=== PATIENT | male | born 1955 | race Caucasian/White ===

== ENCOUNTER 2019-08-15 11:02 | Outpatient (CLI) | payer MEDICARE ==
--- NOTE | 2019-08-15 11:43 | ULT ---
US Hepatic Doppler: 08/15/2019 12:00 AM CLINICAL HISTORY: Cirrhosis. STUDY: Right upper quadrant ultrasound of liver. TECHNIQUE: Multiplanar grayscale and color Doppler images were obtained in a ultrasound of the right upper quadrant of the abdomen. Spectral analysis of the Doppler waveforms of the hepatic and splenic vessels were performed. COMPARISON: None. FINDINGS: Liver: Size: Normal. Echogenicity: Normal. Contour: Nodular consistent with cirrhosis. Mass: None. Bile ducts: No intrahepatic or extrahepatic biliary dilatation. Common bile duct measures 4 mm. Gallbladder: Normal. Pancreas: Head and body appear normal; tail obscured by bowel gas. Hepatic veins: Normal waveforms. Normal directional flow. Portable veins: Normal waveforms. Normal directional flow. Hepatic arteries: Normal waveforms. Normal directional flow. Splenic vein: Normal waveforms. Normal directional flow. Splenic artery: Normal waveforms. Normal directional flow. The spleen is normal in echogenicity without focal lesions and measures 11.5cm in length. IMPRESSION: Cirrhotic liver with normal directional flow of the hepatic and splenic vessels.
== END 2019-08-15 11:03 | disposition home or self-care (01) ==
LOC: SCSULT 11:02
PROVIDERS: ATTEND Internal Medicine Gastroenterology
DX: K70.30 Alcoholic cirrhosis of liver without ascites (principal); K60.2 Anal fissure, unspecified; M53.3 Sacrococcygeal disorders, not elsewhere classified; Z80.0 Family history of malignant neoplasm of digestive organs; Z85.038 Personal history of other malignant neoplasm of large intestine
CPT/HCPCS: 76705

== ENCOUNTER 2019-10-26 10:49 | Outpatient (CLI) | payer MEDICARE ==
--- NOTE | 2019-10-26 11:40 | RAD ---
LUMBAR SPINE SERIES THREE VIEWS: HISTORY: Low back pain. FINDINGS: Vertebral bodies are normal in height. There are prominent osteophytic changes along the course of th e spine, somewhat more right sided. Disk spaces are all relatively well preserved. There are moderate degenerative facet changes noted. 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 POS: TPC
== END 2019-10-26 10:50 | disposition home or self-care (01) ==
LOC: SCSER/OP 10:49
PROVIDERS: ATTEND Family Medicine
DX: M54.5 Low back pain (principal); M47.816 Spondylosis without myelopathy or radiculopathy, lumbar region; M25.78 Osteophyte, vertebrae
CPT/HCPCS: 72100

== ENCOUNTER 2019-11-13 10:54 | Day surgery (SDC) | payer MEDICARE ==
[2019-11-10 09:00] VITALS: BMI 34.8
[2019-11-13 12:33] LABS: Anion Gap 13 mmol/L (10-20); BUN (Urea Nitrogen) 12 mg/dL (8.4-25.7); Calc. Creatinine Clearance 144 mL/min (70-130); Calcium 9.8 mg/dL (7.8-10.44); Carbon Dioxide 28 mmol/L (23-31); Chloride 102 mmol/L (98-107); Estimated GFR-MDRD Greater than 90; Glucose 145 mg/dL (80-115); Potassium 4.6 mmol/L (3.5-5.1); Sodium 138 mmol/L (136-145)
[2019-11-13 12:43] LABS: #Basophils 0.1 thou/uL (0.0-0.2); #Eosinphils 0.2 thou/uL (0.0-0.7); #Lymphocytes 2.1 thou/uL (1.20-3.40); #Monocytes 0.6 thou/uL (0.11-0.59); #Neutrophils 2.2 thou/uL (1.40-6.50); %Basophils 1.5 % (0.0-1.0); %Eosinophils 3.3 % (0.0-10.0); %Lymphocytes 41.1 % (21.0-51.0); %Monocytes 10.8 % (0.0-10.0); %Neutrophils 43.3 % (42.0-75.0); Hemoglobin 14.2 g/dL (14.0-18.0); Mean Corpuscular HGB CONC 34.1 g/dL (32.0-36.0); Mean Corpuscular Hemoglobin 34.4 pg (27.0-31.0); Mean Platelet Volume 11.5 fL (7.4-10.4); Platelet Count 106 thou/uL (130-400); Platelet Morphology Comment Appears Decreased; RBC Distribution Width 11.6 % (11.5-14.5); Red Blood Cell (RBC) Count 4.13 mill/uL (4.70-6.10); White Blood Cell (WBC) Count 5.1 thou/uL (4.8-10.8)
[2019-11-13] MEDS ORDERED: Bupivacaine 0.25% HCL 30 ML VIAL ONE (13:34)
[2019-11-13] MEDS ORDERED: EPINEPHrine 1 MG/ML AMP ONE (13:34)
[2019-11-13] MEDS ORDERED: Fentanyl 100 MCG/2 ML VIAL ONE (13:43)
[2019-11-13] MEDS ORDERED: Lidocaine 2% Jelly 5 ML TUBE ONE (14:21)
--- NOTE | 2019-11-13 16:51 | OP ---
DATE OF PROCEDURE: 11/13/2019 PREOPERATIVE DIAGNOSIS: Anal fissure. POSTOPERATIVE DIAGNOSIS: Anal fissure. PROCEDURE PERFORMED: Lateral internal sphincterotomy after exam under anesthesia. ANESTHESIA: General. ESTIMATED BLOOD LOSS: Minimal. COMPLICATIONS: None. SPECIMENS: None. FINDINGS: There is a hard nodule just posterior to the anal fissure, thought to be scarring from the underlying fissure, where small opening was made anterior to this and it does not tunnel, so no obvious fistula seen. DESCRIPTION OF PROCEDURE: The patient was taken to the operating room and laid supine on the operating room table. After general anesthetic was obtained, he was placed in lithotomy position. His perineum was prepped and draped in a sterile fashion. There was a large posterior anal fissure. There was no anal canal mass. There was no anal margin mass. There was nodular change underneath the posterior anal fissure. There were internal hemorrhoids seen. Incision was made in the mucosa in the anal canal laterally. The internal sphincter muscle was mobilized using a hemostat and cut. Care was taken to avoid injury to the external sphincter. A resultant mucosal defect was closed using Vicryl suture. Local anesthetic was applied. Gelfoam and lidocaine jelly were packed in the anal canal. The patient was sent to Recovery in stable condition. All instrument counts, needle counts, and lap counts were correct. Job ID: [id number]
--- NOTE | 2019-11-16 13:10 | EKG ---
Test Reason : PREOP Blood Pressure : / mmHG Vent. Rate : 081 BPM Atrial Rate : 081 BPM P-R Int : 242 ms QRS Dur : 126 ms QT Int : 414 ms P-R-T Axes : 046 058 063 degrees QTc Int : 480 ms Sinus rhythm with 1st degree A-V block with occasional Premature ventricular complexes Non-specific intra-ventricular conduction block Abnormal ECG Confirmed by ARASH DAWSON ([id number]) on 11/16/2019 1:09:55 PM Referred By: GENA Confirmed By:ARASH DAWSON
== END 2019-11-13 16:34 | disposition home or self-care (01) ==
LOC: SDC 10:54
PROVIDERS: ATTEND Surgery
PROC: 0D8R3ZZ Division of Anal Sphincter, Percutaneous Approach (ICD-10-PCS; principal; 2019-11-13)
DX: K60.2 Anal fissure, unspecified (principal); K64.8 Other hemorrhoids; J30.1 Allergic rhinitis due to pollen; Z86.010 Personal history of colon polyps; Z79.84 Long term (current) use of oral hypoglycemic drugs; Z79.899 Other long term (current) drug therapy
CPT/HCPCS: 36415; 80048; 85025; 93005; 93010; J0171; J0690; J3010; S0020

== ENCOUNTER 2020-08-16 07:09 | Outpatient (CLI) | payer MEDICARE, OTHER ==
[2020-08-17 14:54] LABS: SARS-CoV-2 MS2 Positive; SARS-CoV-2 N Gene Negative; SARS-CoV-2 S Gene Negative; SARS-CoV-2 by NAA Not Detected (NotDetected); SARS-CoV-2 orf1ab Negative
== END 2020-08-16 07:10 | disposition home or self-care (01) ==
LOC: LABBT 07:09
PROVIDERS: ATTEND Ophthalmology Retina Specialist
DX: T85.22XA Displacement of intraocular lens, initial encounter (principal); Z20.828 Contact with and (suspected) exposure to other viral communicable diseases
CPT/HCPCS: 87635; U0003

== ENCOUNTER 2020-09-17 13:23 | Day surgery (SDC) | payer MEDICARE ==
[~2020-09-17 13:23] MED LIST: Bupivacaine PF 0.75% SDV 10 ML ONE; CEFAZOLIN 1 GM VIAL ONE; Dexamethasone 20 MG/5 ML VIAL ONE; Lidocaine 1% PF 5 ML VIAL ONE; Lidocaine 4% PF 5 ML AMP ONE; Maxitrol 0.1% Opth Oint 3.5 GM TUBE ONE; Ondansetron PF 4 MG/2 ML Vial ONE; PROPOFOL 200 MG/20 ML VIAL ONE; Rocuronium Bromide 10 MG/ML (10ML VIAL) ONE; Triamcinolone 40 MG/ML VIAL ONE
[2020-09-17] MEDS ORDERED: Cyclopentolate 1% Opth Drop 2 ML BOT ONE (13:53)
[2020-09-17] MEDS ORDERED: Phenylephrine 2.5% Ophth Soln 5 ML BOT ONE (13:53)
[2020-09-17] MEDS ORDERED: Fentanyl 100 MCG/2 ML VIAL ONE (13:55)
[2020-09-17] MEDS ORDERED: Famotidine/PF 20 mg/2ml Vial ONE (13:55)
[2020-09-17] MEDS ORDERED: Phenylephrine 2.5% Ophth Soln 5 ML BOT FS SCH (14:00)
[2020-09-17] MEDS ORDERED: EPINEPHrine 0.3 MG in Ophthalmic Irrigation Solution 500 ML IRR SCH (14:00)
[2020-09-17] MEDS ORDERED: Cyclopentolate 1% Opth Drop 2 ML BOT FS SCH (14:00)
[2020-09-17] MEDS ORDERED: SUGAMMADEX SODIUM 200 MG/2 ML VIAL ONE (16:42)
--- NOTE | 2020-09-18 00:49 | OP ---
DATE OF PROCEDURE: 09/17/2020 PRINCIPAL PREOPERATIVE DIAGNOSIS: Macula-off rhegmatogenous retinal detachment, left eye. POSTOPERATIVE DIAGNOSIS: Macula-off rhegmatogenous retinal detachment, left eye. NAME OF PROCEDURES PERFORMED: 1. 25-gauge pars plana vitrectomy, left eye. 2. Rhegmatogenous retinal detachment repair, left eye. 3. Endolaser, left eye. 4. 15% C3F8 fill, left eye. ESTIMATED BLOOD LOSS: None. SPECIMENS REMOVED: None. COMPLICATIONS: None. ANESTHESIA: LMA with subtenon's block. SUMMARY OF OPERATION: The patient was identified in the preoperative holding area, where the correct eye being the left eye was marked for surgery. The patient was taken to the operating room, where LMA was induced. The left eye was then prepped and draped in usual sterile ophthalmic fashion for surgery. A wire-clip lid speculum was placed. A standard 25-gauge pars plana vitrectomy platform was fashioned with the trocars placed approximately 3.5 mm from the limbus. The infusion was noted to be within the vitreous cavity prior to being turned on to an infusion pressure of 30 mmHg. The light pipe and microvitrector were introduced in the eye under visualization of the BIOM viewing system. A macula-off rhegmatogenous retinal detachment was noted from approximately 3 o'clock to 10 o'clock. A peripheral shave vitrectomy was performed with the assistance of scleral depression in this previously vitrectomized eye. A small defect was noted at approximately 8 o'clock near the ora char. Great care was taken to relieve all traction off this defect with the use of the microvitrector. A supranasal drainage retinotomy was created with the endo cautery followed by opening with a flute needle. air-fluid exchange was subsequently performed, which allowed for complete flattening of the retina. The endolaser was used to provide barricade around the drainage retinotomy. The inferonasal defect as well as a cerclage within the area of the retinal detachment. Following Endolaser, the flute needle was reintroduced in the eye to remove the residual subretinal fluid. An air-gas exchange was subsequently performed with 15% C3F8. The cannulas were sequentially removed with suturing required of the superotemporal sclerotomy with 8-0 Vicryl suture. Following suturing, all sclerotomies were noted to be gas tight. An inferonasal conjunctival peritomy was fashioned with Federico scissors for administration of sub-Tenon's block. The block consisted of 1:1 ratio of 4% lidocaine and 0.75% Marcaine. A total of 5 cc was administered. Subconjunctival Kenalog and Ancef were injected into the subconjunctival space. Subsequently, the wire lid speculum was removed followed by application of TobraDex ophthalmic ointment and a light patch and shield. The patient tolerated the procedure well, was taken to Outpatient Recovery in good condition. Job ID: [id number]
== END 2020-09-17 19:40 | disposition home or self-care (01) ==
LOC: SDC 13:23
PROVIDERS: ATTEND Ophthalmology Retina Specialist
PROC: 08T53ZZ Resection of Left Vitreous, Percutaneous Approach (ICD-10-PCS; principal; 2020-09-17)
DX: H33.012 Retinal detachment with single break, left eye (principal); Z88.8 Allergy status to other drugs, medicaments and biological substances
CPT/HCPCS: 36416; 67025; J0171; J0690; J1100; J2001; J2405; J2704; J3010; J3301; J3490; S0028

== ENCOUNTER 2020-11-29 07:13 | Outpatient (CLI) | payer MEDICARE ==
[2020-11-29 21:23] LABS: SARS-CoV-2 MS2 Positive; SARS-CoV-2 N Gene Negative; SARS-CoV-2 S Gene Negative; SARS-CoV-2 by NAA Not Detected (NotDetected); SARS-CoV-2 orf1ab Negative
== END 2020-11-29 07:14 | disposition home or self-care (01) ==
LOC: LABBT 07:13
PROVIDERS: ATTEND Ophthalmology Retina Specialist
DX: Z01.812 Encounter for preprocedural laboratory examination (principal); H33.42 Traction detachment of retina, left eye; Z20.822 Contact with and (suspected) exposure to COVID-19
CPT/HCPCS: 87635; U0003

== ENCOUNTER 2020-12-03 08:48 | Day surgery (SDC) | payer MEDICARE ==
[2020-11-29 12:58] VITALS: BMI 34.8
[~2020-12-03 08:48] MED LIST changes: -Bupivacaine PF 0.75% SDV 10 ML ONE; -CEFAZOLIN 1 GM VIAL ONE; -Dexamethasone 20 MG/5 ML VIAL ONE; +EPINEPHrine 0.3 MG in Ophthalmic Irrigation Solution 500 ML IRR SCH; +Famotidine/PF 20 mg/2ml Vial ONE; +Fentanyl 100 MCG/2 ML VIAL ONE; -Lidocaine 1% PF 5 ML VIAL ONE; -Lidocaine 4% PF 5 ML AMP ONE; -Maxitrol 0.1% Opth Oint 3.5 GM TUBE ONE; +Midazolam HCl 2 mg/2 ml Vial ONE; -Ondansetron PF 4 MG/2 ML Vial ONE; -PROPOFOL 200 MG/20 ML VIAL ONE; +Phenylephrine 10 MG/ML VIAL ONE; -Rocuronium Bromide 10 MG/ML (10ML VIAL) ONE; -Triamcinolone 40 MG/ML VIAL ONE
[2020-12-03] MEDS ORDERED: Phenylephrine 2.5% Ophth Soln 5 ML BOT ONE (08:56)
[2020-12-03] MEDS ORDERED: Cyclopentolate 1% Opth Drop 2 ML BOT ONE (08:56)
[2020-12-03] MEDS ORDERED: Acetylcholine 20 MG/2 ML VIAL (OR CHARGE) I-OCULAR SCH (11:15)
[2020-12-03] MEDS ORDERED: Fentanyl 100 MCG/2 ML VIAL ONE (12:27)
[2020-12-03] MEDS ORDERED: HYDROcodone/Acetaminophen 5/325 mg Tablet ONE (15:13)
--- NOTE | 2020-12-03 20:01 | OP ---
DATE OF PROCEDURE: 12/03/2020 PRINCIPAL PREOPERATIVE DIAGNOSES: 1. Tractional retinal detachment, macula-off, left eye. 2. Proliferative vitreoretinopathy, grade C, left eye. POSTOPERATIVE DIAGNOSES: 1. Tractional retinal detachment, macula-off, left eye. 2. Proliferative vitreoretinopathy, grade C, left eye. PROCEDURES PERFORMED: 1. 42 band scleral buckle placement. 2. 25-gauge pars plana vitrectomy, left eye. 3. Retinal detachment repair, left eye. 4. Endolaser, left eye. 5. Silicone oil fill, left eye. ESTIMATED BLOOD LOSS: None. SPECIMENS REMOVED: None. COMPLICATIONS: None. ANESTHESIA: LMA with sub-Tenon's block. SUMMARY OF OPERATION: The patient was identified in the preoperative holding area, where the correct eye being the left eye was marked for surgery. The patient was taken to the operating room, where general anesthesia was induced. The left eye was prepped and draped in usual sterile ophthalmic fashion for surgery. A wire clip lid speculum was placed. A 360-degree conjunctival peritomy was fashioned with Federico scissors. Cautery was used to provide hemostasis as needed. The four rectus muscles were tagged with 2-0 silk sutures and placement of scleral buckle. Using the 5-0 Mersilene suture, a mattress suture was placed in each of the oblique quadrants. Suture passes were placed for an 8 mm from the rectus muscle insertion site. The 42 band scleral buckle was brought to the field and was subsequently passed under the oblique sutures as well as underneath the recti muscles and tied superonasally with the sleeve. At this point, a 25-gauge pars plana vitrectomy platform was fashioned with the trocars placed approximately 2.5 mm from the limbus. The infusion was noted to be within the vitreous cavity prior to being turned on to infusion pressure of 30 mmHg. The light pipe and microvitrector were introduced in the eye under visualization of the BIOM viewing system. A macula-off tractional retinal detachment was noted from approximately 12 to 9 o'clock. The macula was detached. Grade C proliferative vitreoretinopathy was noted at approximately 3 o'clock and 5 o'clock. Using the Roevrto MaxGrip forceps, the proliferative vitreoretinopathy was partially removed. However, the proliferative vitreoretinopathy was not able to be completely removed; therefore, the decision was made to make a retinectomy at 3 o'clock around the proliferative vitreoretinopathy as well as at 5 o'clock. This allowed for significant relaxation of the retina. A retinotomy site was made superior to the superotemporal arcade. This was created with endo cautery followed by opening with a flute needle. An air-fluid exchange was performed, which allowed for complete flattening of the retina. Endolaser was used to provide barricade around the retinotomy site, the retinectomy sites, as well as 360-degree cerclage posterior to the preexisting laser. The buckle height was noted to be adequate. Following Endolaser, the flute needle was reintroduced in the eye to remove any residual subretinal fluid. A complete silicone oil fill was subsequently achieved. An inferior peripheral iridectomy was performed with the use of the microvitrector. The sub-Tenon's block was performed. A 5 mL administered of 4% lidocaine and 0.75% Marcaine. The cannulas were sequentially removed, and all sclerotomies were sutured with 8-0 Vicryl suture. Subsequently, the eye was noted to be watertight. The conjunctiva was subsequently closed with interrupted 8-0 Vicryl sutures. Subconjunctival Kenalog and Ancef were injected. The patient tolerated the procedure well, taken to outpatient recovery area in good condition. Job ID: [id number]
== END 2020-12-03 17:25 | disposition home or self-care (01) ==
LOC: SDC 08:48
PROVIDERS: ATTEND Ophthalmology Retina Specialist
PROC: 08T53ZZ Resection of Left Vitreous, Percutaneous Approach (ICD-10-PCS; principal; 2020-12-03)
PROC: 08U10JZ Supplement of Left Eye with Synthetic Substitute, Open Approach (ICD-10-PCS; 2020-12-03)
DX: H33.42 Traction detachment of retina, left eye (principal); Z79.84 Long term (current) use of oral hypoglycemic drugs; Z79.899 Other long term (current) drug therapy; Z88.8 Allergy status to other drugs, medicaments and biological substances
CPT/HCPCS: C1814; J0171; J2250; J2370; J3010; S0028

== ENCOUNTER 2021-03-13 10:41 | Outpatient (CLI) | payer MEDICARE ==
[2021-03-13 22:12] LABS: SARS-CoV-2 PCR by NAA Not Detected (NotDetected)
== END 2021-03-13 10:42 | disposition home or self-care (01) ==
LOC: LABBT 10:41
PROVIDERS: ATTEND Ophthalmology Retina Specialist
DX: Z01.812 Encounter for preprocedural laboratory examination (principal); H54.7 Unspecified visual loss; Z20.822 Contact with and (suspected) exposure to COVID-19
CPT/HCPCS: U0003; U0005; 87635

== ENCOUNTER 2021-03-18 13:44 | Day surgery (SDC) | payer MEDICARE ==
[2021-03-17 09:34] VITALS: BMI 34.2
[~2021-03-18 13:44] MED LIST changes: +Cyclopentolate 1% Opth Drop 2 ML BOT ONE; -Phenylephrine 10 MG/ML VIAL ONE
[2021-03-18] MEDS ORDERED: Bupivacaine PF 0.75% SDV 10 ML ONE (13:45)
[2021-03-18] MEDS ORDERED: Lidocaine 4% PF 5 ML AMP ONE (13:45)
[2021-03-18] MEDS ORDERED: Maxitrol 0.1% Opth Oint 3.5 GM TUBE ONE (13:45)
[2021-03-18] MEDS ORDERED: CEFAZOLIN 1 GM VIAL ONE (13:45)
[2021-03-18] MEDS ORDERED: Metoclopramide HCl 10 MG/2 ML VIAL ONE (13:45)
[2021-03-18] MEDS ORDERED: PROPOFOL 200 MG/20 ML VIAL ONE (13:45)
[2021-03-18] MEDS ORDERED: Famotidine/PF 20 mg/2ml Vial ONE (13:45)
[2021-03-18] MEDS ORDERED: Triamcinolone 40 MG/ML VIAL ONE (13:45)
[2021-03-18] MEDS ORDERED: Lidocaine 1% PF 5 ML VIAL ONE (13:45)
[2021-03-18] MEDS ORDERED: Ondansetron PF 4 MG/2 ML Vial ONE (13:45)
[2021-03-18] MEDS ORDERED: Fentanyl 100 MCG/2 ML VIAL ONE (14:38)
== END 2021-03-18 15:57 | disposition home or self-care (01) ==
LOC: SDC 13:44
PROVIDERS: ATTEND Ophthalmology Retina Specialist
PROC: 08T53ZZ Resection of Left Vitreous, Percutaneous Approach (ICD-10-PCS; principal; 2021-03-18)
PROC: 08QF3ZZ Repair Left Retina, Percutaneous Approach (ICD-10-PCS; 2021-03-18)
DX: H43.392 Other vitreous opacities, left eye (principal); I10 Essential (primary) hypertension; E11.9 Type 2 diabetes mellitus without complications; J30.1 Allergic rhinitis due to pollen; Z79.899 Other long term (current) drug therapy
CPT/HCPCS: J0171; J0690; J2250; J2405; J2704; J2765; J3010; J3301; J3490; S0028

== ENCOUNTER 2021-04-24 08:23 | Outpatient (CLI) | payer MEDICARE ==
[2021-04-24 17:23] LABS: SARS-CoV-2 PCR by NAA Not Detected (NotDetected)
== END 2021-04-24 08:24 | disposition home or self-care (01) ==
LOC: LABBT 08:23
PROVIDERS: ATTEND Ophthalmology Retina Specialist
DX: Z01.812 Encounter for preprocedural laboratory examination (principal); H33.42 Traction detachment of retina, left eye; Z20.822 Contact with and (suspected) exposure to COVID-19
CPT/HCPCS: U0003; U0005

== ENCOUNTER 2021-04-29 09:59 | Day surgery (SDC) | payer MEDICARE ==
[2021-04-28 10:29] VITALS: BMI 34.8
[~2021-04-29 09:59] MED LIST changes: -Cyclopentolate 1% Opth Drop 2 ML BOT ONE; -Midazolam HCl 2 mg/2 ml Vial ONE
[2021-04-29] MEDS ORDERED: Phenylephrine 2.5% Ophth Soln 5 ML BOT ONE (10:15)
[2021-04-29] MEDS ORDERED: Cyclopentolate 1% Opth Drop 2 ML BOT ONE (10:15)
[2021-04-29] MEDS ORDERED: Bupivacaine PF 0.75% SDV 10 ML ONE (12:03)
[2021-04-29] MEDS ORDERED: Lidocaine 4% PF 5 ML AMP ONE (12:03)
[2021-04-29] MEDS ORDERED: Lidocaine 1% PF 5 ML VIAL ONE ×2 (12:03)
[2021-04-29] MEDS ORDERED: Triamcinolone 40 MG/ML VIAL ONE (12:03)
[2021-04-29] MEDS ORDERED: Metoclopramide HCl 10 MG/2 ML VIAL ONE (12:03)
[2021-04-29] MEDS ORDERED: Acetylcholine 20 MG/2 ML VIAL (OR CHARGE) ONE (12:03)
[2021-04-29] MEDS ORDERED: Glycopyrrolate 0.2 MG/ML 5 ML SYRINGE ONE (12:03)
[2021-04-29] MEDS ORDERED: PROPOFOL 200 MG/20 ML VIAL ONE (12:03)
[2021-04-29] MEDS ORDERED: Maxitrol 0.1% Opth Oint 3.5 GM TUBE ONE (12:03)
[2021-04-29] MEDS ORDERED: CEFAZOLIN 1 GM VIAL ONE (12:03)
[2021-04-29] MEDS ORDERED: Ondansetron PF 4 MG/2 ML Vial ONE (12:03)
== END 2021-04-29 16:10 | disposition home or self-care (01) ==
LOC: SDC 09:59
PROVIDERS: ATTEND Ophthalmology Retina Specialist
PROC: 08PK3JZ Removal of Synthetic Substitute from Left Lens, Percutaneous Approach (ICD-10-PCS; principal; 2021-04-29)
PROC: 08T53ZZ Resection of Left Vitreous, Percutaneous Approach (ICD-10-PCS; 2021-04-29)
DX: H33.42 Traction detachment of retina, left eye (principal); T85.29XA Other mechanical complication of intraocular lens, initial encounter; Z79.4 Long term (current) use of insulin; Z79.899 Other long term (current) drug therapy; Z88.8 Allergy status to other drugs, medicaments and biological substances
CPT/HCPCS: 65920; 67108; 82962; C1814; 36416; J0171; J0690; J2405; J2704; J2765; J3010; J3301; J3490; S0028

== ENCOUNTER 2022-05-11 07:55 | Outpatient (CLI) | payer MEDICARE ==
[2022-05-11 08:44] LABS: Hemoglobin 16.2 g/dL (13.5-17.5); Mean Corpuscular HGB CONC 34.5 g/dL (32.0-36.0); Mean Corpuscular Hemoglobin 32.6 pg (27.0-33.0); Mean Corpuscular Volume 94.6 fl (81.2-95.1); Mean Platelet Volume 12.7 fl (7.4-10.4); Platelet Count 97 10x3/uL (150-450); RBC Distribution Width 12.9 % (11.5-14.5); Red Blood Cell (RBC) Count 4.97 10x6/uL (4.32-5.72); White Blood Cell (WBC) Count 6.2 10x3/uL (3.5-10.5)
[2022-05-11 08:57] LABS: Prothrombin Time 11.2 sec (9.5-12.1)
[2022-05-11 09:01] LABS: Anion Gap 15 mmol/L (10-20); BUN (Urea Nitrogen) 15 mg/dL (8.4-25.7); Calc. Creatinine Clearance 0 mL/min (70-130); Calcium 8.8 mg/dL (7.8-10.44); Carbon Dioxide 26 mmol/L (23-31); Chloride 105 mmol/L (98-107); Glucose 120 mg/dL (80-115); Potassium 4.1 mmol/L (3.5-5.1); Sodium 142 mmol/L (136-145)
== END 2022-05-11 07:56 | disposition home or self-care (01) ==
LOC: LABBT 07:55
PROVIDERS: ATTEND Internal Medicine Cardiovascular Disease
DX: Z01.812 Encounter for preprocedural laboratory examination (principal); I50.22 Chronic systolic (congestive) heart failure; I42.8 Other cardiomyopathies; Z20.822 Contact with and (suspected) exposure to COVID-19
CPT/HCPCS: 80048; 85027; 85610; U0003; U0005

== ENCOUNTER 2022-05-14 06:08 | Day surgery (SDC) | payer MEDICARE ==
[2022-05-11 14:01] VITALS: BMI 35.5
[2022-05-14] MEDS ORDERED: Vancomycin (BATCH) 1.5 GRAM/300 ML BAG ONE (06:23)
[2022-05-14] MEDS ORDERED: CEFAZOLIN 1 GM VIAL ONE (06:38)
[2022-05-14] MEDS ORDERED: Gentamicin 80 MG/2 ML VIAL ONE (06:38)
[2022-05-14] MEDS ORDERED: Lidocaine 1% (PF) 30 ML VIAL ONE (06:38)
[2022-05-14] MEDS ORDERED: fentaNYL Citrate/PF 100 MCG/2 ML SYRINGE ONE ×3 (07:02→10:22)
[2022-05-14] MEDS ORDERED: Ketamine 50 MG/ML (10ML VIAL) ONE (07:02)
[2022-05-14] MEDS ORDERED: Midazolam HCl 2 mg/2 ml Vial ONE (07:02)
[2022-05-14] MEDS ORDERED: Propofol 500 MG/50 ML VIAL ONE (07:03)
[2022-05-14] MEDS ORDERED: Famotidine/PF 20 mg/2ml Vial ONE (07:03)
[2022-05-14] MEDS ORDERED: Dexmedetomidine 200 MCG/2 ML VIAL ONE (07:03)
[2022-05-14] MEDS ORDERED: Ondansetron PF 4 MG/2 ML Vial ONE (07:55)
[2022-05-14] MEDS ORDERED: PROPOFOL 200 MG/20 ML VIAL ONE (07:55)
[2022-05-14] MEDS ORDERED: Phenylephrine 10 MG/ML VIAL ONE (07:55)
[2022-05-14] MEDS ORDERED: Lidocaine 1% PF 5 ML VIAL ONE (07:55)
[2022-05-14] MEDS ORDERED: HYDROcodone/Acetaminophen 5/325 mg Tablet ONE (11:04)
== END 2022-05-14 13:38 | disposition home or self-care (01) ==
LOC: SDC 06:08
PROVIDERS: ATTEND Internal Medicine Cardiovascular Disease
PROC: 0JH608Z Insertion of Defibrillator Generator into Chest Subcutaneous Tissue and Fascia, Open Approach (ICD-10-PCS; principal; 2022-05-14)
PROC: 02H43KZ Insertion of Defibrillator Lead into Coronary Vein, Percutaneous Approach (ICD-10-PCS; 2022-05-14)
DX: I11.0 Hypertensive heart disease with heart failure (principal); I50.42 Chronic combined systolic (congestive) and diastolic (congestive) heart failure; I42.8 Other cardiomyopathies; I48.0 Paroxysmal atrial fibrillation; I25.118 Atherosclerotic heart disease of native coronary artery with other forms of angina pectoris; E11.319 Type 2 diabetes mellitus with unspecified diabetic retinopathy without macular edema; E78.2 Mixed hyperlipidemia; G47.30 Sleep apnea, unspecified; Z79.4 Long term (current) use of insulin; Z79.899 Other long term (current) drug therapy; Z88.8 Allergy status to other drugs, medicaments and biological substances
CPT/HCPCS: 33230; 71045; 93005; C1763; C1777; C1898; J3370; J0690; J1580; J2001; J2250; J2370; J2405; J2704; S0028